=== PATIENT | female | born 1945 | race Caucasian/White ===

== ENCOUNTER 2017-06-29 19:36 | Emergency (ER) | payer BC ==
[~2017-06-29] VITALS: Ht 170.2 cm; Wt 56.8 kg
[2017-06-29 19:41] VITALS: Ht 170.2 cm; Wt 56.8 kg
--- NOTE | 2017-06-29 20:23 | RADRPT ---
PROCEDURE: CT Brain without contrast. CLINICAL INDICATION: Headache. TECHNIQUE: A CT of the brain without contrast was performed utilizing axial sections from the skul l base through the vertex. The patient was scanned without intravenous contrast enhancement. Sagitta l and coronal reformatted images were obtained using the data from the axial images. Total exam DLP is 720.23 mGy-cm. CTDIvol is 43.27 mGy. One or more of the following dose reduction techniques were used: Automated exposure control, adjustment of the mA and/or kV according to patient size, use of iterative reconstruction technique. DICOM images are available. COMPARISON: None available. FINDINGS: There is normal lo-white matter differentiation. There is enlargement of the ventricles and subarachnoid spaces consistent with atrophy. There is decreased attenuation of the periventricular white matter consistent with microangiopathic ischemic change. There are small old lacunar infarcts in the left basal ganglia. There is no evidenc e of recent infarct. There is no intracranial hemorrhage or space-occupying lesion. There are vascular calcifications consistent with atherosclerosis. There is no skull fracture or lytic lesion. IMPRESSION: 1. Atrophy. 2. Microangiopathic ischemic change. 3. Atherosclerosis. 4. No intracranial hemorrhage. 5. Small old lacunar infarcts in the basal ganglia. 6. Otherwise unremarkable noncontrast CT scan of the brain. RPTAT: QQ .Jax Montes MD, Date Time Electronically viewed and signed by .Jax Montes MD, on 06/29/2017 20:23 .R/
[2017-06-29] MEDS ORDERED: ACETAMINOPHEN 325 MG TAB PO ONE (22:00)
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
[2017-06-29 22:53] VITALS: BP 145/73; PULSE 71; RESP 20
== END 2017-06-29 22:55 | disposition home or self-care (01) ==
LOC: E/R 19:36
DX: R51 Headache (principal); I10 Essential (primary) hypertension; F17.210 Nicotine dependence, cigarettes, uncomplicated; Z81.8 Family history of other mental and behavioral disorders
CPT/HCPCS: 70450